=== PATIENT | female | born 1955 | race Two or more races ===

== ENCOUNTER 2018-11-29 06:28 | Day surgery (SDC) | payer OTHER ==
[~2018-11-29] VITALS: Ht 160 cm; Wt 65.8 kg
[2018-11-29 06:45] VITALS: BP 136/71
[2018-11-29 11:28] VITALS: BP 142/72
== END 2018-11-29 11:15 | disposition home or self-care (01) ==
LOC: DS 06:28 → GI 08:00 → OR 08:00 → DS 11:15
DX: Z12.11 Encounter for screening for malignant neoplasm of colon (principal); K57.31 Diverticulosis of large intestine without perforation or abscess with bleeding; K21.9 Gastro-esophageal reflux disease without esophagitis; Z86.010 Personal history of colon polyps; Z88.8 Allergy status to other drugs, medicaments and biological substances; Z79.899 Other long term (current) drug therapy; Z90.710 Acquired absence of both cervix and uterus; Z98.890 Other specified postprocedural states; Z80.0 Family history of malignant neoplasm of digestive organs
CPT/HCPCS: 45378; J1200; J1610; J2250; J2310; J3010; J3490

== ENCOUNTER 2018-12-27 09:11 | Day surgery (SDC) | payer OTHER ==
[~2018-12-27] VITALS: Ht 154.9 cm; Wt 63.5 kg
[2018-12-27 09:35] VITALS: BP 138/66
[2018-12-27 13:20] VITALS: BP 125/62
== END 2018-12-27 12:15 | disposition home or self-care (01) ==
LOC: GI 09:11 → OR 11:45 → GI 12:00 → OR 13:00
DX: K21.9 Gastro-esophageal reflux disease without esophagitis (principal); K57.90 Diverticulosis of intestine, part unspecified, without perforation or abscess without bleeding; Z88.0 Allergy status to penicillin; Z88.8 Allergy status to other drugs, medicaments and biological substances; Z98.890 Other specified postprocedural states; Z90.49 Acquired absence of other specified parts of digestive tract; Z79.899 Other long term (current) drug therapy
CPT/HCPCS: 43235; J1200; J1610; J2250; J2310; J3010; J3490